=== PATIENT | male | born 1995 | race African-American/Black ===

== ENCOUNTER → 2021-05-24 09:20 | Outpatient (BNVA) | payer OTHER, SELFPAY | PROVIDERS: PCP Internal Medicine Geriatric Medicine; Visit Provider Physician Assistant Medical | DX: M54.50 Low back pain, unspecified (principal); R07.81 Pleurodynia; S80.812A Abrasion, left lower leg, initial encounter; X58.XXXA Exposure to other specified factors, initial encounter | CPT/HCPCS: 71101; 99203 ==

== ENCOUNTER → 2021-05-29 13:07 | Outpatient (BNVA) | payer OTHER, SELFPAY | PROVIDERS: PCP Internal Medicine Geriatric Medicine; Visit Provider Physician Assistant Medical | DX: R07.81 Pleurodynia (principal); M54.50 Low back pain, unspecified | CPT/HCPCS: 99213 ==

== ENCOUNTER → 2021-06-12 15:06 | Outpatient (BNVA) | payer OTHER, SELFPAY | PROVIDERS: PCP Internal Medicine Geriatric Medicine; Visit Provider Physician Assistant Medical | DX: R07.81 Pleurodynia (principal); M54.50 Low back pain, unspecified; S80.812D Abrasion, left lower leg, subsequent encounter; X58.XXXD Exposure to other specified factors, subsequent encounter | CPT/HCPCS: 99213 ==

== ENCOUNTER → 2021-10-10 10:30 | Outpatient (BNVA) | payer OTHER, SELFPAY | PROVIDERS: PCP Internal Medicine Geriatric Medicine; Visit Provider Internal Medicine | DX: S00.12XA Contusion of left eyelid and periocular area, initial encounter (principal); W21.09XA Struck by other hit or thrown ball, initial encounter | CPT/HCPCS: 92002; 99203 ==

== ENCOUNTER → 2021-10-12 10:32 | Outpatient (BNVA) | payer OTHER, SELFPAY | PROVIDERS: PCP Internal Medicine Geriatric Medicine; Visit Provider Physician Assistant Medical | DX: S00.12XA Contusion of left eyelid and periocular area, initial encounter (principal); W21.09XA Struck by other hit or thrown ball, initial encounter; H15.002 Unspecified scleritis, left eye | CPT/HCPCS: 99213 ==

== ENCOUNTER → 2023-09-13 11:39 | Outpatient (BNVA) | payer OTHER, SELFPAY | PROVIDERS: PCP Internal Medicine Geriatric Medicine; Visit Provider Physician Assistant | DX: S83.412A Sprain of medial collateral ligament of left knee, initial encounter (principal); W03.XXXA Other fall on same level due to collision with another person, initial encounter | CPT/HCPCS: 99204 ==

== ENCOUNTER → 2023-09-16 12:50 | Outpatient (BNVA) | payer OTHER, SELFPAY | PROVIDERS: PCP Internal Medicine Geriatric Medicine; Visit Provider Physician Assistant Medical | DX: M23.92 Unspecified internal derangement of left knee (principal); S83.412A Sprain of medial collateral ligament of left knee, initial encounter; W50.0XXA Accidental hit or strike by another person, initial encounter | CPT/HCPCS: 99213 ==